=== PATIENT | male | born 1990 | race Caucasian/White ===

== ENCOUNTER 2023-06-27 07:46 | Emergency (ER) | payer MEDICAID ==
[2023-06-27] MEDS ORDERED: LIDOCAINE PATCH 5% TOP STA (08:38)
--- NOTE | 2023-06-27 08:41 | ED Physician Documentation ---
PD HPI BACK PAIN - Stated complaint Stated Complaint: BACK PX - Chief complaint Chief Complaint: Back Pain - History obtained from History obtained from: Patient - Additional information Additional information: Patient is a 32-year-old male presenting for evaluation of right lower back pain this been present for past few weeks with radiation down his right leg. He has been going to a chiropractor and had an x-ray as well as been getting back adjustments. His last adjustment was on Tuesday. He states his pain worsened over the weekend. It is now shooting down into his leg. He denies any other injury or trauma but has had intermittent episodes of back pain in the past. 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 No bowel or bladder incontinence or saddle anesthesia. Does not take a blood thinner. Does have a history of IV drug use but has not used in the past 3 years. Is on Suboxone for history of opiate addiction. Denies fever, chest pain, shortness of air, dysuri a, abdominal symptoms. Review of Systems Constitutional: denies: Fever Cardiac: denies: Chest pain / pressure Respiratory: denies: Dyspnea GI: denies: Abdominal Pain Musculoskeletal: reports: Back pain PD PAST MEDICAL HISTORY - Past Medical History Past Medical History: Yes Musculoskeletal: Chronic back pain - Past Surgical History Past Surgical History: No - Present Medications Home Medications: Ambulatory Orders Medication Instructions Recorded Confirmed Buprenorphine HCl/Naloxone HCl 8 mg PO BID 06/27/23 06/27/23 [Suboxone 8 mg-2 mg Sl Film] Cyclobenzaprine [Flexeril] 10 mg PO TID PRN #20 tablet 06/27/23 Ibuprofen [Motrin] 800 mg PO Q8H PRN #30 tablet 06/27/23 Lidocaine Patch 5% [Lidoderm Patch] 1 patch TOP DAILY PRN #10 patch 06/27/23 predniSONE [Deltasone] 20 mg PO [id number] #21 tab 06/27/23 - Allergies Allergies/Adverse Reactions: Allergies Allergy/AdvReac Type Severity Reaction Status Date / Time No Known Drug Allergies Allergy Verified 06/27/23 08:00 - Social History Does the pt smoke?: Yes Smoking Status: Current every day smoker Does the pt drink ETOH?: No Does the pt have substance abuse?: No - Immunizations Immunizations are current?: No PD ED PE NORMAL - General General: Alert and oriented X 3, No acute distress, Well developed/nourished - HEENT HEENT: Atraumatic, Moist mucous membranes, Pharynx benign - Neck Neck: Supple, no meningeal sign - Cardiac Cardiac: RRR, No murmur, Strong equal pulses - Respiratory Respiratory: No respiratory distress, Clear bilaterally - Abdomen Abdomen: Soft, Non tender - Back Back: No spinal TTP, Other (Right paralumbar tenderness to palpation) - Derm Derm: Warm and dry - Extremities Extremities: No deformity, Other (Sitting straight leg raise is positive on the right) - Neuro Neuro: Normal speech Results - Vitals Vitals: Vital Signs - 24 hr 06/27/23 06/27/23 07:56 08:50 Temperature 37.1 C 37 C Heart Rate 88 82 Respiratory 16 16 Rate Blood Pressure 149/85 H 144/81 H O2 Saturation 99 98 Oxygen O2 Source Room air PD Medical Decision Making - ED course ED course: Patient is a 32-year-old male presenting for evaluation of right lower back pain with radiation to the right. No fall or other injury. No red flag signs or symptoms in regards to his back pain. We will start patient on steroid course as well as muscle relaxers and anti-inflammatories. Patient counseled on concerning symptoms to return for. He was advised on importance of follow-up with PCP as he may need further testing or referral to physical therapy.He is ambulatory at discharge. Departure - Departure Disposition: 01 Home, Self Care Clinical Impression: Low back pain radiating to right lower extremity Condition: Stable Instructions: ED Sciatica Follow-Up: [facility] [place] [Provider Group] Prescriptions: predniSONE [Deltasone] 20 mg PO [id number] #21 tab Cyclobenzaprine [Flexeril] 10 mg PO TID PRN #20 tablet PRN Reason: Spasms Lidocaine Patch 5% [Lidoderm Patch] 1 patch TOP DAILY PRN #10 patch PRN Reason: pain Ibuprofen [Motrin] 800 mg PO Q8H PRN #30 tablet PRN Reason: PAIN &/OR FEVER Comments: I believe your symptoms today are related to a pinched nerve causing your pain. I am starting you on medications and have sent this prescription to [facility] in [place]. You do need for close follow-up with her primary care provider. You may benefit from a referral to physical therapy or may need further testing such as an MRI. If you develop any worsening symptoms such as trouble controlling your bowel or bladder function, numbness in the groin, fevers or have any other concerns please consider return to the emergency department. Forms: PCP List, Activity restrictions Discharge Date/Time: 06/27/23 08:50
[2023-06-27 09:00] VITALS: BP 144/81; O2SAT 98
== END 2023-06-27 08:50 | disposition home or self-care (01) ==
LOC: ED 07:46
DX: M54.50 Low back pain, unspecified (principal); M79.604 Pain in right leg; F17.200 Nicotine dependence, unspecified, uncomplicated; Z79.899 Other long term (current) drug therapy
CPT/HCPCS: 99282; 99283; A9270